=== PATIENT | male | born 1980 | race Caucasian/White ===

== ENCOUNTER → 2020-09-26 | Day surgery (SDC) | payer BC, OTHER ==
[~2020-09-26] MED LIST: Bupivacaine 0.5%/EPINEPHrine 1:200,000 50 ML MDV ONE; Citric Acid/Sodium Citrate Solution 30 ML Cup PO ONE; Dexamethasone 4 MG/ML 5 ML MDV ONE; Famotidine 20 MG/2 ML SDV IVPUSH ONE; Glycopyrrolate 0.2 MG/ML SDV ONE; HYDROmorphone 0.5 MG/0.5 ML Syringe IVPUSH PRN; Ketorolac 30 MG/ML SDV ONE; Lactated Ringers 1,000 ML IV SCH; Lactated Ringers 1,000 ML ONE; Lidocaine 1% 4 ML ONE; Lidocaine 1%/Sod Bicarbonate in NS 8.4% 1 ML Syringe IDERM PRN; Metoclopramide 10 MG/2 ML SDV IV PRN; Midazolam 1 MG/ML 2 ML SDV ONE; Ondansetron 4 MG/2 ML SDV IVPUSH PRN; Ondansetron 4 MG/2 ML SDV ONE; Piperacillin/Tazobactam 4.5 GM in Sodium Chloride 0.9% 100 ML IV ONE; Propofol 200 MG/20 ML SDV ONE; Rocuronium 50 MG/5 ML Vial ONE; Scopolamine 1.5 MG Transdermal Patch TOP ONE; Sodium Chloride 0.9% 10 ML Syringe FLUSH PRN; Succinylcholine/Sod PF 100 MG/5 ML SYRINGE IV ONE; cefOXitin 2 GM in Premix Bag 1 BAG IV ONE; fentaNYL 100 MCG/2 ML SDV IVPUSH PRN; fentaNYL 250 MCG/5 ML SDV ONE; oxyCODONE 5 MG Tab PO PRN
--- NOTE | 2020-09-26 13:10 | PCM.PREANE ---
Preanesthetic Assessment - Procedure Proposed Procedure: lap appy - Anesthesia/Transfusion/Family Hx Anesthesia History: Prior Anesthesia Without Reaction Family History of Anesthesia Reaction: No Transfusion History: No Prior Transfusion(s) Intubation History: Unknown - Review of Systems General: No Symptoms Pulmonary: No Symptoms Cardiovascular: No Symptoms Gastrointestinal: No Symptoms Neurological: No Symptoms Other: Reports: None - Physical Assessment NPO Status Date: 09/26/20 NPO Status Time: 08:30 (0830 granola bar, no oral contrast ) Vital Signs: 127/76 16 65 97.9 Height: 1.88 m Weight: 91.3 kg ASA Class: 1E Mental Status: Alert & Oriented x3 Airway Class: Mallampati = 1 Dentition: Reports: Normal Dentition, Jemison(s) (permanent ) Thyro-Mental Finger Breadths: 3 Mouth Opening Finger Breadths: 5 ROM/Head Extension: Full Lungs: Clear to Auscultation, Normal Respiratory Effort Cardiovascular: Regular Rate, Regular Rhythm - Allergies Allergies/Adverse Reactions: Allergies Allergy/AdvReac Type Severity Reaction Status Date / Time No Known Allergies Allergy Verified 09/26/20 12:23 - Blood Blood Available: No - Anesthesia Plan Pre-Op Medication Ordered: Antacids - Acknowledgements Anesthesia Type Planned: General Anesthesia Pt an Appropriate Candidate for the Planned Anesthesia: Yes Alternatives and Risks of Anesthesia Discussed w Pt/Guardian: Yes Pt/Guardian Understands and Agrees with Anesthesia Plan: Yes PreAnesthesia Questionnaire - CURRENT (IN HOUSE) MEDS Current Meds: Current Medications Lactated Ringer's (Ringers, Lactated) 1,000 mls @ 125 mls/hr IV ASDIRECTED ORI Stop: 09/26/20 23:00 Cefoxitin Sodium 2 gm/ Premix 50 mls @ 100 mls/hr IV ONETIME ONE Stop: 09/26/20 13:14 Lidocaine/Sodium Bicarbonate (Lidocaine 1%/Sod Bicarbonate In Ns 8.4% 1 Ml Syringe) 0.25 ml IDERM ONETIME PRN PRN Reason: Prior to IV Start Stop: 09/26/20 23:00 Metoclopramide HCl (Metoclopramide 10 Mg/2 Ml Sdv) 10 mg IV ONETIME PRN PRN Reason: Nausea/Vomiting Stop: 09/26/20 23:00 Sodium Chloride (Sodium Chloride 0.9% 10 Ml Syringe) 10 ml FLUSH ASDIRECTED PRN PRN Reason: Keep Vein Open Stop: 09/26/20 23:00 Discontinued Medications Citric Acid/Sodium Citrate (Citric Acid/Sodium Citrate Solution 30 Ml Cup) 30 ml PO ONETIME ONE Stop: 09/26/20 12:46 Famotidine (Famotidine 20 Mg/2 Ml Sdv) 20 mg IVPUSH ONETIME ONE Stop: 09/26/20 12:46
--- NOTE | 2020-09-26 15:12 | PCM.POSTAN ---
POST ANESTHESIA ASSESSMENT - MENTAL STATUS Mental Status: Alert - VITAL SIGNS Vital Signs: 1505 123/74 100 73 13 97.8 Last Vital Signs Temp 36.6 C 09/26/20 13:00 Pulse 16 L 09/26/20 13:00 Resp 16 09/26/20 13:00 BP 127/76 09/26/20 13:00 Pulse Ox 97 09/26/20 13:00 - RESPIRATORY Respiratory Status: Respiratory Rate WNL, Airway Patent, O2 Saturation Stable, Supplemental Oxygen - CARDIOVASCULAR CV Status: Pulse Rate WNL, Blood Pressure Stable, Elevated Pulse Rate - GASTROINTESTINAL GI Status: No Symptoms - PAIN Pain Score: 0 - POST OP HYDRATION Hydration Status: Adequate & Stable
--- NOTE | 2020-09-26 15:15 | PCM.HP.2 ---
H&P History of Present Illness - General Date of Service: 09/26/20 Admit Problem/Dx: acute appendicitis Source of Information: Patient, Provider History Limitations: Reports: No Limitations - History of Present Illness Initial Comments - Free Text/Narative: Mr. Leon is a healthy 40 yo man who presents from the [facility] after he was evaluated for right lower quadrant pain last night. His lab work was unremarkable but CT scan showed findings of acute appendicitis. Right Back Pain Score (Numeric/FACES): 3 - Related Data Allergies/Adverse Reactions: Allergies Allergy/AdvReac Type Severity Reaction Status Date / Time No Known Allergies Allergy Verified 09/26/20 12:23 Home Medications: Home Meds oxyCODONE 5 mg PO Q4H PRN #15 tab 09/26/20 [Rx] H&P Review of Systems - Review of Systems: Review Of Systems: See Below General: Reports: Malaise HEENT: Reports: No Symptoms Pulmonary: Reports: No Symptoms Cardiovascular: Reports: No Symptoms Gastrointestinal: Reports: Abdominal Pain Genitourinary: Reports: No Symptoms Musculoskeletal: Reports: No Symptoms Skin: Reports: No Symptoms Psychiatric: Reports: No Symptoms Neurological: Reports: No Symptoms Hematologic/Lymphatic: Reports: No Symptoms Immunologic: Reports: No Symptoms Exam - Exam Exam: See Below - Vital Signs Vital Signs: Last Vital Signs Temp 36.6 C 09/26/20 15:05 Pulse 73 09/26/20 15:05 Resp 13 09/26/20 15:05 BP 124/74 09/26/20 15:05 Pulse Ox 100 09/26/20 15:05 Weight: 91.3 kg - Exam Quality Assessment: Supplemental Oxygen General: Alert, Oriented, Cooperative HEENT: Conjunctiva Clear Neck: Supple, Trachea Midline Lungs: Clear to Auscultation, Normal Respiratory Effort Cardiovascular: Regular Rate, Regular Rhythm GI/Abdominal Exam: Soft, Tender Extremities: Normal Inspection Skin: Warm, Dry, Intact Neuro Extensive - Mental Status: Alert, Oriented x3, Normal Mood/Affect Psychiatric: Normal Mood - Patient Data Lab Results Last 24 hrs: Laboratory Results - last 24 hr 09/26/20 Range/Units 12:31 SARS-CoV-2 RNA (STACEY) Negative (NEGATIVE) Sepsis Event Note - Evaluation Sepsis Screening Result: No Definite Risk - Focused Exam Vital Signs: Vital Signs Temp Pulse Resp BP Pulse Ox 09/26/20 15:05 36.6 C 73 13 124/74 100 09/26/20 13:00 36.6 C 16 L 16 127/76 97 Problem List Initiated/Reviewed/Updated: Yes Orders Last 24hrs: Active Orders 24 hr Category Date Time Status Communication Order [RC] ASDIRECTED Care 09/26/20 13:28 Active Cooling Warming Measures [RC] ASDIRECTED Care 09/26/20 13:28 Active Oxygen Therapy [RC] ASDIRECTED Care 09/26/20 13:28 Active Peripheral IV Care [RC] . DIRECTED Care 09/26/20 12:18 Active Pulse Oximetry [RC] ASDIRECTED Care 09/26/20 13:28 Active Ready for Discharge [RC] PER UNIT ROUTINE Care 09/26/20 15:12 Ordered Verify Patient Consent Obtain [RC] ASDIRECTED Care 09/26/20 12:18 Active Vital Signs [RC] Q15M Care 09/26/20 13:28 Active HYDROmorphone [Dilaudid] Med 09/26/20 13:28 Active 0.5 mg IVPUSH Q10M PRN Lactated Ringers [Ringers, Lactated] 1,000 ml Med 09/26/20 12:30 Active IV ASDIRECTED Lidocaine 1%/Sod Bicarbonate [Buffered Lidocaine 1% in Med 09/26/20 12:18 Active NS 8.4%] 0.25 ml IDERM ONETIME PRN Metoclopramide [Reglan] Med 09/26/20 12:18 Active 10 mg IV ONETIME PRN Ondansetron [Zofran] Med 09/26/20 13:28 Active 4 mg IVPUSH ONETIME PRN Sodium Chloride 0.9% [Saline Flush] Med 09/26/20 12:18 Active 10 ml FLUSH ASDIRECTED PRN fentaNYL [Sublimaze] Med 09/26/20 13:28 Active 50 mcg IVPUSH Q5M PRN Medication Administration Instruction [OM.PC] Routine Oth 09/26/20 12:18 Ordered Peripheral IV Insertion Adult [OM.PC] Routine Oth 09/26/20 12:18 Ordered Schedule Procedure [COMM] Routine Oth 09/26/20 12:30 Ordered Medication Orders Fentanyl (Fentanyl 100 Mcg/2 Ml Sdv) 50 mcg IVPUSH Q5M PRN PRN Reason: Pain Stop: 09/26/20 23:00 Hydromorphone HCl (Hydromorphone 0.5 Mg/0.5 Ml Syringe) 0.5 mg IVPUSH Q10M PRN PRN Reason: Pain (severe 7-10) Stop: 09/26/20 23:00 Lactated Ringer's (Ringers, Lactated) 1,000 mls @ 125 mls/hr IV ASDIRECTED ORI Stop: 09/26/20 23:00 Last Admin: 09/26/20 13:00 Dose: 125 mls/hr Documented by: MARTÍN Lidocaine/Sodium Bicarbonate (Lidocaine 1%/Sod Bicarbonate In Ns 8.4% 1 Ml Syringe) 0.25 ml IDERM ONETIME PRN PRN Reason: Prior to IV Start Stop: 09/26/20 23:00 Metoclopramide HCl (Metoclopramide 10 Mg/2 Ml Sdv) 10 mg IV ONETIME PRN PRN Reason: Nausea/Vomiting Stop: 09/26/20 23:00 Last Admin: 09/26/20 13:03 Dose: 10 mg Documented by: MARTÍN Ondansetron HCl (Ondansetron 4 Mg/2 Ml Sdv) 4 mg IVPUSH ONETIME PRN PRN Reason: Nausea/Vomiting Stop: 09/26/20 23:00 Sodium Chloride (Sodium Chloride 0.9% 10 Ml Syringe) 10 ml FLUSH ASDIRECTED PRN PRN Reason: Keep Vein Open Stop: 09/26/20 23:00 Assessment/Plan Comment:: Acute appendicitis. Plan for laparoscopic appendectomy. - Mortality Measure Prognosis:: Good
--- NOTE | 2020-09-26 15:20 | PCM48HPAN ---
Post Anesthesia Note - EVALUATION WITHIN 48HRS OF ANESTHETIC Vital Signs in Normal Range: Yes Patient Participated in Evaluation: Yes Respiratory Function Stable: Yes Airway Patent: Yes Cardiovascular Function Stable: Yes Hydration Status Stable: Yes Pain Control Satisfactory: Yes Nausea and Vomiting Control Satisfactory: Yes Mental Status Recovered: Yes Vital Signs: Last Vital Signs Temp 36.6 C 09/26/20 15:05 Pulse 73 09/26/20 15:05 Resp 13 09/26/20 15:13 BP 124/74 09/26/20 15:05 Pulse Ox 100 09/26/20 15:13
--- NOTE | 2020-09-26 15:24 | PCM.PRNOTE ---
- Free Text/Narrative Note: Date: 09/26/2020 Operation: laparoscopic appendectomy Indication: acute appendicitis Surgeon: Nestor Toribio MD Antibiotic: 2 g cefoxitin IV EBL: minimal Specimen: appendix DVT ppx: SCDs Findings: inflamed, nodular appendix in right paracolic gutter, not retrocecal. Detailed Report: The patient was taken to the OR and placed supine on the table. Time out was performed and general endotracheal anesthesia was initiated. Abdominal hair was clipped and the patient's arm was tucked at his left side. The abdomen was prepped and draped in usual sterile fashion. A Veress needle was placed at the left upper quadrant to establish pneumoperitoneum. At a pressure of 15 mm Hg, a bladed 12 mm trocar was inserted just superior to the umbilicus. A 5 mm 30 degree laparoscope was inserted and abdominal contents inspected. There was no evidence of injury from Veress needle placement, and the needle was removed. Additional 5 mm trocars were placed at the left lower quadrant and suprapubic area. The scope was placed through the left lateral port and the patient was positioned in Trendelenburg and rotated towards the surgeon standing on the patient's left side. The appendix was readily seen, and was not retrocecal as suggested by pre-operative imaging. The appendix was inflamed, with edematous and nodular features. The appendix was lifted at its base and a window as made in the mesoappendix with the [place] Ligasure. The appendix and small part of the cecum were removed using the powered laparoscopic linear stapler using a 30 mm vascular staple load. Two loads were used in total. There was some minor bleeding at the staple line which was controlled with pressure from a laparoscopic grasper for a few minutes. The mesoappendix was divided using the Ligasure. The specimen was placed in an endocatch bag and removed through the umbilical port site. The dissection bed was suctioned and appeared hemostatic. Omentum was draped over the staple line. The umbilical incision site was closed with 0 vicryl using a laparoscopic suture passer under laparoscopic visualization. The left port was removed under visualization and no bleeding was noted. Pneumoperitoneum was released and the remaining port removed. Incisions were closed at the level of skin with running subcuticular vicryl and dressed with dermabond. The patient tolerated the procedure well. A total of 30 cc 0.5% marcaine was used for local anesthetic during the operation.
== END | disposition home or self-care (01) ==
LOC: JD.SDS 12:16
PROVIDERS: ATTEND Surgery
DX: K35.80 Unspecified acute appendicitis (principal); D3A.8 Other benign neuroendocrine tumors; Z79.899 Other long term (current) drug therapy; Z01.812 Encounter for preprocedural laboratory examination; Z20.822 Contact with and (suspected) exposure to COVID-19
CPT/HCPCS: 44970; 87635; A9270; J0330; J0694; J1100; J1885; J2250; J2405; J2704; J2710; J2765; J3010; J3490; J7120; 00840; 99140; U0002